=== PATIENT | female | born 1985 | race Caucasian/White ===

== ENCOUNTER 2022-09-14 07:58 | Outpatient (CLI) | payer OTHER ==
[2022-09-14] MEDS ORDERED: Iopamidol 300 61% 100 ML VIAL FS ONE (08:41)
== END 2022-09-14 07:59 | disposition home or self-care (01) ==
LOC: CSHCT 07:58
PROVIDERS: ATTEND Internal Medicine Gastroenterology
DX: R10.13 Epigastric pain (principal); Z80.0 Family history of malignant neoplasm of digestive organs; K58.0 Irritable bowel syndrome with diarrhea; K76.9 Liver disease, unspecified; N32.89 Other specified disorders of bladder
CPT/HCPCS: 74177